=== PATIENT | female | born 1985 | race Caucasian/White ===

== ENCOUNTER 2020-08-15 08:12 | Inpatient (IN) | payer OTHER ==
[~2020-08-15] VITALS: Ht 157.5 cm; Wt 3.2 kg
[2020-08-15] MEDS ORDERED: PRENATAL TABLE1 EAC1 PO (08:36)
== END 2020-08-18 12:16 | disposition home or self-care (01) | DRG 788 ==
LOC: O/R 08:12 → OB/GYN 10:01
PROVIDERS: ADMIT Obstetrics & Gynecology; ATTEND Obstetrics & Gynecology
PROC: 4A1HXFZ Monitoring of Products of Conception, Cardiac Rhythm, External Approach (ICD-10-PCS; 2020-08-15)
PROC: 10D00Z1 Extraction of Products of Conception, Low, Open Approach (ICD-10-PCS; principal; 2020-08-15 13:30)
DX: O65.5 Obstructed labor due to abnormality of maternal pelvic organs (principal); O34.211 Maternal care for low transverse scar from previous cesarean delivery; Z3A.39 39 weeks gestation of pregnancy; Z37.0 Single live birth